=== PATIENT | female | born 1975 | race Asian ===

== ENCOUNTER 2018-02-12 20:22 | Emergency (ER) | payer OTHER ==
[2018-02-12] MEDS ORDERED: NS 1,700 ML IV ONE (20:44)
[2018-02-12] MEDS ORDERED: IBUPROFEN 600 MG TAB PO ONE (20:46)
--- NOTE | 2018-02-12 20:49 | EDPHY ---
H & P Stated Complaint: fever/pain s/p D & C on the 02/09/18 at [facility]. Time Seen by Provider: 02/12/18 20:37 HPI/ROS: CHIEF COMPLAINT: Fever HISTORY OF PRESENT ILLNESS: The patient is a 42-year-old female who is 3 days status post D&[facility] at [facility] She is a and went in for an 8 week checkup and her fetus did not have a heartbeat. She elected to do a D&C at that time. She has had only mild low back pain and dark spotting since the procedure but this morning developed a fever up to 101.9 and has had mild red spotting. She has also had chills. No dysuria or frequency. No nausea vomiting. No sore throat, runny nose, congestion, cough etc. No headache. No lightheadedness. No chest pain. No swelling in her extremities. [facility] about the fever and they told her to come to the emergency department. No yellow or green discharge. She did receive RhoGAM for the procedure because she is Rh negative. Severity: Moderate Modifying factors: Moderate improvement with ibuprofen and Vicodin REVIEW OF SYSTEMS: Constitutional: See HPI EENTM: denies: blurred vision, double vision, nose congestion Respiratory: denies: cough, shortness of breath Cardiac: denies: chest pain, irregular heart rate, lightheadedness, palpitations Gastrointestinal/Abdominal: denies: abdominal pain, diarrhea, nausea, vomiting, blood streaked stools Genitourinary: See HPI denies: dysuria, frequency, hematuria, pain Musculoskeletal: denies: joint pain, muscle pain Skin: denies: lesions, rash, jaundice, bruising Neurological: denies: headache, numbness, paresthesia, tingling, dizziness, weakness Hematologic/Lymphatic: denies: blood clots, easy bleeding, easy bruising Immunologic/allergic: denies: HIV/AIDS, transplant 10 systems reviewed and negative except as noted EXAM: GENERAL: Well-appearing, well-nourished and in no acute distress. HEAD: Atraumatic, normocephalic. EYES: Pupils equal round and reactive to light, extraocular movements intact, sclera anicteric, conjunctiva are normal. ENT: TMs normal, nares patent, oropharynx clear without exudates. Moist mucous membranes. NECK: Normal range of motion, supple without lymphadenopathy or JVD. LUNGS: Breath sounds clear to auscultation bilaterally and equal. No wheezes rales or rhonchi. HEART: Regular rate and rhythm without murmurs, rubs or gallops. ABDOMEN: Soft, nontender, normoactive bowel sounds. No guarding, no rebound. No masses appreciated. : Scant blood, no unusual discharge, no cervical motion tenderness, mild pain in the right adnexa. No obvious mass. BACK: No CVA tenderness, no spinal tenderness, step-offs or deformities EXTREMITIES: Normal range of motion, no pitting or edema. No clubbing or cyanosis. NEUROLOGICAL: Cranial nerves II through XII grossly intact. Normal speech, normal gait. 5/5 strength, normal movement in all extremities, normal sensation , normal reflexes PSYCH: Normal mood, normal affect. SKIN: Warm, dry, normal turgor, no visible rashes or lesions. Source: Patient Exam Limitations: No limitations - Personal History LMP (Females 10-55): Over 28 Days Ago Current Tetanus Diphtheria and Acellular Pertussis (TDAP): Unsure - Medical/Surgical History Hx Asthma: No Hx Chronic Respiratory Disease: No Hx Diabetes: No Hx Cardiac Disease: No Hx Renal Disease: No Hx Cirrhosis: No Hx Alcoholism: No Hx HIV/AIDS: No Hx Splenectomy or Spleen Trauma: No Other PMH: hypothyroid, D & C 02/09/18 - Family History Significant Family History: No pertinent family hx - Social History Smoking Status: Never smoked Alcohol Use: Sober Drug Use: None Constitutional: Initial Vital Signs Temperature (C) 37.7 C 02/12/18 20:34 Heart Rate 86 02/12/18 20:34 Respiratory Rate 16 02/12/18 20:34 Blood Pressure 97/67 L 02/12/18 20:34 O2 Sat (%) 98 02/12/18 20:34 O2 Delivery Mode Room Air Allergies/Adverse Reactions: No Known Allergies Allergy (Unverified 02/12/18 20:33) Home Medications: Medication Instructions Recorded Amoxicillin/Clavulanate Pot 875 mg PO BID #20 tab 02/12/18 [Augmentin 875Mg] Fluconazole [Diflucan (*)] 150 mg PO ONCE #1 tab 02/12/18 Hydrocodone/APAP 5/325 [[place] 02/12/18 5/325 (*)] Levothyroxine [Synthroid 25 mcg 02/12/18 (*)] Medical Decision Making - Diagnostics Imaging Results: Imaging Impressions Pelvic/Renal Ultrasound 02/12/18 20:45 Impression: 1. Thickened endometrial lining measuring 2.2 cm. No gas within the uterine cavity to suggest endometritis. 2. Normal left ovary. No free fluid or pelvic abscess. Findings discussed with emergency department physician, William Mujica MD on February 12, 2018 at 10:12 p.m. Imaging: Discussed imaging studies w/ field service technician Radiologist ED Course/Re-evaluation: 10:45 p.m. I discussed the ultrasound and lab work with Dr. Mckenzie who is the [facility]. The procedure was done by Dr. Fiore. At the [facility] in [place]. The patient's lactate is reassuring. Her fever is controlled with antipyretics. Her white count is slightly elevated. Her endometrium is slightly thickened. No gas. No free fluid. Normal adnexa. Dr. Mckenzie recommends oral antibiotics and will follow up with the patient tomorrow by phone. I had a long discussion with the patient and about indications for returning to the ER and for IV antibiotics and admission. They are both comfortable with this. She is well appearing now. She has stable vital signs. Differential Diagnosis: Partial list of the Differential diagnosis considered include but were not limited to; endometritis, retained product conception, urinary tract infection and although unlikely based on the history and physical exam, I also considered hemorrhage, abscess, tubal , perforation. I discussed these differential diagnoses and the plan with the patient as well as the usual and expected course. The patient understands that the diagnosis is provisional and that in medicine we are not always correct and that further workup is often warranted. Usual and customary warnings were given. All of the patient's questions were answered. The patient was instructed to return to the emergency department should the symptoms at all worsen or return, otherwise to followup with the physician as we discussed. - Data Points Microbiology Results: MICROBIOLOGY 02/12/18 22:10 Unspecified Urine Culture - Preliminary 02/12/18 22:10 Vaginal - Swab Gram Stain - Final Medications Given: Discontinued Medications Amoxicillin/Clavulanate Potassium (Augmentin 875mg) 875 mg PO EDNOW ONE PRN Reason: Protocol Stop: 02/12/18 22:38 Last Admin: 02/12/18 22:43 Dose: 875 mg Sodium Chloride (Ns) 1,700 mls @ 3,400 mls/hr 30 ml/kg infuse over 30 min ( 1700 ml) IV EDNOW ONE PRN Reason: Protocol Stop: 02/12/18 21:13 Last Admin: 02/12/18 21:10 Dose: 1,000 mls Ibuprofen (Motrin) 600 mg PO EDNOW ONE Stop: 02/12/18 20:47 Last Admin: 02/12/18 21:33 Dose: 600 mg Point of Care Test Results: CBC CBC Collection Date 02/12/18 CBC Collection Time 20:55 WBC 12.7 RBC 4.64 HGB 13.7 HCT 39.2 PLT 312 Neut # 10.9 Neut 85.2 LYMPH # 1.3 LYMPH 10.5 Other WBC # 0.5 Other WBC 4.3 MCV 84.5 Chemistry 02/12/18 21:12 POC Sodium 139 mEq/L mEq/L (135-145) POC Potassium 3.2 mEq/L L mEq/L (3.3-5.0) POC Chloride 104.0 mEq/L mEq/L (97-110) POC Total CO2 22 mEq/L mEq/L (22-31) POC BUN 11 mg/dL mg/dL (7-23) POC Creatinine 0.6 mg/dL mg/dL (0.6-1.0) POC Glucose 110 mg/dL H mg/dL (70-100) POC Calcium 9.4 mg/dL mg/dL (8.5-10.4) POC Total Bilirubin 0.6 mg/dL mg/dL (0.1-1.4) POC AST 29 IU/L IU/L (14-46) POC ALT 26 IU/L IU/L (9-52) POC Alk Phosphatase 78 IU/L IU/L (38-126) POC Total Protein 7.5 g/dL g/dL (6.3-8.2) POC Albumin 3.5 g/dL g/dL (3.5-5.0) Blood Gas/Lactic Acid-Venous 02/12/18 21:00 POC Lactic Acid Gustavo 1.1 mmol/L mmol/L (0.7-2.1) Urine Dip Collection Date 02/12/18 Collection Time 21:00 Specific [place] (1.002-1.030) 1.030 PH (5.0-7.5) 6.0 Leukocytes (Negative) Trace Nitrites (Negative) Negative Protein (Negative) 2+ Glucose (Negative) Negative Ketones (Negative) Trace Urobilnogen (0.2-1.0 EU) 0.2 Bilirubin (Negative) Test Not Performed Blood (Negative) 2+ Departure - Departure Disposition: Home, Routine, Self-Care Clinical Impression: Endometritis following abortive Condition: Fair Instructions: Endometritis (ED) Additional Instructions: I spoke with Dr. Le Mckenzie on the phone about her condition. She or Dr. Fiore will call you tomorrow to see how you are feeling. If you're doing worse return to the emergency department. Take the antibiotics as discussed as well as ibuprofen for fever. You may take the Diflucan if you develop a yeast infection. Referrals: YASMEEN NAGEL [Primary Care Provider] - As per Instructions Prescriptions: Amoxicillin/Clavulanate Pot [Augmentin 875Mg] 875 mg PO BID #20 tab Fluconazole [Diflucan (*)] 150 mg PO ONCE #1 tab
[2018-02-12 22:33] VITALS: BP 100/59
[2018-02-12] MEDS ORDERED: AMOXICILLIN/CLAVULANATE POT 875/125 MG TAB PO ONE (22:37)
[2018-02-14 11:58] LABS: GC AMPLIFICATION GENPROBE NEGATIVE (NEGATIVE)
== END 2018-02-12 22:58 | disposition home or self-care (01) ==
LOC: CED 20:22
DX: O04.5 Genital tract and pelvic infection following (induced) termination of pregnancy (principal); E86.9 Volume depletion, unspecified; E03.9 Hypothyroidism, unspecified; Z98.890 Other specified postprocedural states
CPT/HCPCS: 76856-PO; 80053-PO; 83605-PO